=== PATIENT | male | born 1940 | race African-American/Black ===

== ENCOUNTER 2023-06-03 10:57 | Emergency (ER) | payer OTHER, MEDICAID ==
[~2023-06-03] VITALS: Ht 172.7 cm; Wt 69.0 kg
[2023-06-03 11:00] VITALS: O2SAT 99
[2023-06-03 11:48] LABS: BASOPHILS % 0.2 % (0.0-2.0); EOSINOPHILS % 1.8 % (0.0-5.0); HEMATOCRIT. 28.4 % (42.0-52.0); HEMOGLOBIN. 10.2 g/dL (14.0-18.0); LYMPHOCYTES % 30.8 % (20.0-50.0); MEAN CORPUSCULAR HEMOGLOBIN 32.8 pg (28.0-32.0); MEAN CORPUSCULAR VOLUME 91.1 fL (80.0-94.0); MEAN PLATELET VOLUME 6.5 fl (7.4-10.4); MONOCYTES % 9.6 % (2.0-8.0); NEUTROPHILS % 57.6 % (40.0-76.0); PLATELET 258 x1000/uL (130-400); RED BLOOD CELL COUNT 3.12 mill/uL (4.7-6.1); RED CELL DISTRIBUTION WIDTH 12.5 % (11.6-14.6)
[2023-06-03] MEDS ORDERED: MORPHINE SULFATE 2 MG/ML CPJ (NOT FOR IM USE) IV ONE (12:15)
[2023-06-03 12:33] LABS: ALANINE AMINOTRANSFERASE 18 IU/L (10-49); ALBUMIN 4.1 g/dL (3.2-4.8); ASPARTATE AMINOTRANSFERASE 21 IU/L (<34); BILIRUBIN TOTAL 0.6 mg/dL (0.1-1.0); CALCIUM 9.8 mg/dL (8.7-10.4); CARBON DIOXIDE 29 mEq/L (21-32); CHLORIDE 99 mEq/L (98-107); GLUCOSE 189 mg/dL (70-105); POTASSIUM 4.2 mEq/L (3.5-5.1); PROTEIN TOTAL 7.3 g/dL (6.0-8.3); SODIUM 131 mEq/L (136-145); TROPONIN I HIGH SENSITIVITY 7 ng/L (3.0-53); UREA NITROGEN BLOOD 21 mg/dL (9-23)
[2023-06-03] MEDS ORDERED: MORPHINE SULFATE 4 MG/ML CPJ (NOT FOR IM USE) IV ONE (14:15)
[2023-06-03] MEDS ORDERED: LABETALOL 5MG/ML SYR 20 MG/4 ML SYRINGE IV ONE (14:30)
[2023-06-03 17:00] LABS: TROPONIN I HIGH SENSITIVITY 8 ng/L (3.0-53)
[2023-06-03] MEDS ORDERED: LABETALOL 5MG/ML SYR 20 MG/4 ML SYRINGE IV NR (18:00)
[2023-06-03 19:48] VITALS: BP 170/82; PULSE 68; RESP 17; TEMP 98.6
== END 2023-06-03 19:50 | disposition short-term general hospital (02) ==
LOC: ER 10:57
DX: R07.89 Other chest pain (principal); I10 Essential (primary) hypertension; Z86.73 Personal history of transient ischemic attack (TIA), and cerebral infarction without residual deficits
CPT/HCPCS: 99285; 74174; 96374; 71275; 71045; 96375; 80053; 83880; 85025; 84484; 36415; 93005; 96376; J3490; J2270 ×2

== ENCOUNTER 2023-06-29 17:55 | Emergency (ER) | payer OTHER ==
[~2023-06-29] VITALS: Ht 175.3 cm; Wt 82.0 kg
[2023-06-29] MEDS ORDERED: ONDANSETRON HCL 4MG/2ML INJ IV STA (18:18)
[2023-06-29] MEDS ORDERED: SODIUM CHLORIDE 0.9% 1,000 ML IV ONE (18:30)
[2023-06-29] MEDS ORDERED: ASPIRIN 81MG TABLET PO ONE (18:45)
[2023-06-29 19:59] LABS: BASOPHILS % 0.2 % (0.0-2.0); EOSINOPHILS % 1.5 % (0.0-5.0); HEMATOCRIT. 38.6 % (42.0-52.0); HEMOGLOBIN. 12.9 g/dL (14.0-18.0); LYMPHOCYTES % 11.2 % (20.0-50.0); MEAN CORPUSCULAR HEMOGLOBIN 32.4 pg (28.0-32.0); MEAN CORPUSCULAR HGB CONC 33.3 g/dL (31.0-37.0); MEAN CORPUSCULAR VOLUME 97.3 fL (80.0-94.0); MEAN PLATELET VOLUME 6.7 fl (7.4-10.4); MONOCYTES % 1.3 % (2.0-8.0); NEUTROPHILS % 85.8 % (40.0-76.0); PLATELET 224 x1000/uL (130-400); RED BLOOD CELL COUNT 3.96 mill/uL (4.7-6.1); RED CELL DISTRIBUTION WIDTH 13.6 % (11.6-14.6); WHITE BLOOD COUNT 9.7 x1000/uL (4.5-11.0)
[2023-06-29 20:31] LABS: INR 1.1; PROTHROMBIN TIME 11.4 sec (9.6-11.0)
[2023-06-29 21:39] LABS: CARBON DIOXIDE 15 mEq/L (21-32); CHLORIDE 96 mEq/L (98-107); POTASSIUM 4.5 mEq/L (3.5-5.1); SODIUM 125 mEq/L (136-145)
[2023-06-29 21:46] LABS: ALANINE AMINOTRANSFERASE 32 IU/L (10-49); ALBUMIN 4.3 g/dL (3.2-4.8); ASPARTATE AMINOTRANSFERASE 27 IU/L (<34); BILIRUBIN TOTAL 0.8 mg/dL (0.1-1.0); CALCIUM 10.3 mg/dL (8.7-10.4); GLUCOSE 209 mg/dL (70-105); PROTEIN TOTAL 7.9 g/dL (6.0-8.3); TROPONIN I HIGH SENSITIVITY 7 ng/L (3.0-53); UREA NITROGEN BLOOD 18 mg/dL (9-23)
[2023-06-29 21:47] LABS: CREATININE 1.4 mg/dL (0.6-1.3); ETHANOL BLOOD < 10 mg/dL (<10)
[2023-06-29 23:12] VITALS: TEMP 98.6; O2SAT 99
[2023-06-30 00:06] VITALS: BP 179/99; PULSE 84; RESP 15
== END 2023-06-30 00:07 | disposition short-term general hospital (02) ==
LOC: ER 17:55 → CANBEDREQ 22:13 → ER 06-30 00:07
DX: R07.89 Other chest pain (principal); R55 Syncope and collapse; E87.1 Hypo-osmolality and hyponatremia; N17.9 Acute kidney failure, unspecified; I10 Essential (primary) hypertension; Z86.73 Personal history of transient ischemic attack (TIA), and cerebral infarction without residual deficits
CPT/HCPCS: 80053; 80320; 83690; 85025; 85610; 84484; 87493; 36415; 71045; 93005; 96361; 96374; 99291; J2405; J7030; G0480

== ENCOUNTER 2023-07-05 18:17 | Emergency (ER) | payer OTHER ==
[~2023-07-05] VITALS: Ht 182.9 cm; Wt 77.0 kg
[2023-07-05 18:20] VITALS: TEMP 98.4; O2SAT 98
[2023-07-05 19:16] LABS: BASOPHILS % 0.4 % (0.0-2.0); EOSINOPHILS % 2.8 % (0.0-5.0); HEMATOCRIT. 28.6 % (42.0-52.0); HEMOGLOBIN. 9.6 g/dL (14.0-18.0); LYMPHOCYTES % 30.8 % (20.0-50.0); MEAN CORPUSCULAR HEMOGLOBIN 32.8 pg (28.0-32.0); MEAN CORPUSCULAR HGB CONC 33.7 g/dL (31.0-37.0); MEAN CORPUSCULAR VOLUME 97.4 fL (80.0-94.0); MEAN PLATELET VOLUME 6.7 fl (7.4-10.4); MONOCYTES % 7.8 % (2.0-8.0); NEUTROPHILS % 58.2 % (40.0-76.0); PLATELET 223 x1000/uL (130-400); RED BLOOD CELL COUNT 2.93 mill/uL (4.7-6.1); RED CELL DISTRIBUTION WIDTH 13.4 % (11.6-14.6); WHITE BLOOD COUNT 7.3 x1000/uL (4.5-11.0)
[2023-07-05 19:27] LABS: ALANINE AMINOTRANSFERASE 35 IU/L (10-49); ALBUMIN 4.1 g/dL (3.2-4.8); ASPARTATE AMINOTRANSFERASE 34 IU/L (<34); BILIRUBIN TOTAL 0.6 mg/dL (0.1-1.0); CALCIUM 9.9 mg/dL (8.7-10.4); CARBON DIOXIDE 22 mEq/L (21-32); CHLORIDE 96 mEq/L (98-107); GLUCOSE 179 mg/dL (70-105); POTASSIUM 4.6 mEq/L (3.5-5.1); PROTEIN TOTAL 6.7 g/dL (6.0-8.3); SODIUM 125 mEq/L (136-145); TROPONIN I HIGH SENSITIVITY 8 ng/L (3.0-53); UREA NITROGEN BLOOD 12 mg/dL (9-23)
[2023-07-05] MEDS ORDERED: ACETAMINOPHEN 325MG TABLET PO ONE (19:45)
[2023-07-05] MEDS ORDERED: ENALAPRIL 2.5MG/2ML VIAL 2ML IV ONE (20:45)
[2023-07-05] MEDS ORDERED: ENALAPRIL 1.25MG/ML VIAL 1ML IV NR (21:00)
[2023-07-05 22:30] VITALS: BP 176/97; PULSE 90; RESP 18
== END 2023-07-05 22:30 | disposition left against medical advice (07) ==
LOC: ER 18:17 → CANBEDREQ 07-07 16:42
DX: R07.89 Other chest pain (principal); E87.1 Hypo-osmolality and hyponatremia; F41.9 Anxiety disorder, unspecified; I10 Essential (primary) hypertension; Z86.73 Personal history of transient ischemic attack (TIA), and cerebral infarction without residual deficits
CPT/HCPCS: 36415; 71045; 80053; 84484; 85025; 93005; 99285; J3490

== ENCOUNTER 2023-10-10 17:16 | Emergency (ER) | payer OTHER, MEDICAID ==
[~2023-10-10] VITALS: Ht 172.7 cm; Wt 82.0 kg
[2023-10-10 17:19] VITALS: O2SAT 99
[2023-10-10] MEDS: NITROGLYCERIN 0.4MG TABLET SL SL PRN (17:40)
[2023-10-10 18:21] LABS: BASOPHILS % 0.2 % (0.0-2.0); EOSINOPHILS % 5.3 % (0.0-5.0); HEMATOCRIT. 28.3 % (42.0-52.0); HEMOGLOBIN. 9.8 g/dL (14.0-18.0); MEAN CORPUSCULAR HEMOGLOBIN 33.7 pg (28.0-32.0); MEAN CORPUSCULAR HGB CONC 34.5 g/dL (31.0-37.0); MEAN CORPUSCULAR VOLUME 97.8 fL (80.0-94.0); MEAN PLATELET VOLUME 6.6 fl (7.4-10.4); MONOCYTES % 6.5 % (2.0-8.0); PLATELET 256 x1000/uL (130-400); RED CELL DISTRIBUTION WIDTH 12.7 % (11.6-14.6); WHITE BLOOD COUNT 5.5 x1000/uL (4.5-11.0)
[2023-10-10 18:27] LABS: CHLORIDE 103 mEq/L (98-107); POTASSIUM 3.8 mEq/L (3.5-5.1); SODIUM 135 mEq/L (136-145)
[2023-10-10 18:28] LABS: CALCIUM 10.5 mg/dL (8.7-10.4); CARBON DIOXIDE 27 mEq/L (21-32)
[2023-10-10 18:33] LABS: CREATININE 1.1 mg/dL (0.6-1.3); GLUCOSE 172 mg/dL (70-105); TROPONIN I HIGH SENSITIVITY 9 ng/L (3.0-53); UREA NITROGEN BLOOD 15 mg/dL (9-23)
[2023-10-10 18:35] LABS: ALANINE AMINOTRANSFERASE 24 IU/L (10-49); ALBUMIN 4.3 g/dL (3.2-4.8); ASPARTATE AMINOTRANSFERASE 20 IU/L (<34); BILIRUBIN TOTAL 0.5 mg/dL (0.1-1.0); PROTEIN TOTAL 7.1 g/dL (6.0-8.3)
[2023-10-10 18:59] VITALS: BP 188/90; PULSE 55; RESP 18; TEMP 97.9
[2023-10-10] MEDS: CLONIDINE 0.1MG TABLET PO ONE (19:24)
[2023-10-10 19:58] LABS: TROPONIN I HIGH SENSITIVITY 12 ng/L (3.0-53)
[2023-10-10] MEDS ORDERED: LORAZEPAM 1MG TABLET PO ONE (22:00)
== END 2023-10-10 22:21 | disposition left against medical advice (07) ==
LOC: ER 17:16 → EDBEDREQ 17:43 → ER 22:21
DX: R07.89 Other chest pain (principal); I10 Essential (primary) hypertension; F41.9 Anxiety disorder, unspecified; Z86.73 Personal history of transient ischemic attack (TIA), and cerebral infarction without residual deficits
CPT/HCPCS: 36415; 71045; 80053; 83880; 84484; 85025; 93005; 99285

== ENCOUNTER 2024-08-10 06:59 | Inpatient (IN) | payer OTHER, MEDICAID, MEDICARE ==
[~2024-08-10] VITALS: Ht 167.6 cm; Wt 65.8 kg
[2024-08-10 08:30] LABS: BG BASE EXCESS -1.4 mmol/L (-2.0-3.0); BG CARBOXYHEMOGLOBIN 0.8 % (0.5-1.5); BG DEOXYHEMOGLOBIN 3.2 % (0.0-5.0); BG FRACTION INSPIRED OXYGEN 21; BG HCO3 ACT 22.7 mmol/L (21.0-28.0); BG METHEMOGLOBIN 0.2 % (0.5-1.5); BG OXYGEN SATURATION 96.8 % (94.0-98.0); BG OXYHEMOGLOBIN 95.8 % (94.0-98.0); BG PCO2 35.9 mmHg (35.0-48.0); BG PH 7.419 (7.350-7.450); BG PO2 90.3 mmHg (83.0-108.0); BG SAMPLE SITE LEFT BRACHIAL; BG TOTAL HEMOGLOBIN 11.5 g/dL (13.5-17.5); BG VENT MODE ROOM AIR
[2024-08-10 08:47] LABS: BASOPHILS % 0.3 % (0.0-2.0); EOSINOPHILS % 2.5 % (0.0-5.0); HEMATOCRIT. 30.2 % (42.0-52.0); HEMOGLOBIN. 10.6 g/dL (14.0-18.0); LYMPHOCYTES % 23.4 % (20.0-50.0); MEAN CORPUSCULAR HEMOGLOBIN 33.4 pg (28.0-32.0); MEAN CORPUSCULAR HGB CONC 35.2 g/dL (31.0-37.0); MEAN CORPUSCULAR VOLUME 95.1 fL (80.0-94.0); MONOCYTES % 6.2 % (2.0-8.0); NEUTROPHILS % 67.6 % (40.0-76.0); PLATELET 230 x1000/uL (130-400); RED BLOOD CELL COUNT 3.18 mill/uL (4.7-6.1); RED CELL DISTRIBUTION WIDTH 12.7 % (11.6-14.6); WHITE BLOOD COUNT 6.4 x1000/uL (4.5-11.0)
[2024-08-10 09:00] LABS: CHLORIDE 100 mEq/L (98-107); POTASSIUM 3.8 mEq/L (3.5-5.1); SODIUM 132 mEq/L (136-145)
[2024-08-10 09:01] LABS: CALCIUM 9.4 mg/dL (8.7-10.4); CARBON DIOXIDE 24 mEq/L (21-32)
[2024-08-10 09:02] LABS: PROTHROMBIN TIME 10.9 sec (9.6-11.0)
[2024-08-10 09:05] LABS: CLARITY URINE CLEAR (CLEAR); COLOR URINE YELLOW (YELLOW); GLUCOSE URINE 2+ (NEGATIVE); KETONES URINE NEGATIVE (NEGATIVE); LEUKOCYTE ESTERASE URINE 1+ (NEGATIVE); NITRITE URINE NEGATIVE (NEGATIVE); OCCULT BLOOD URINE NEGATIVE (NEGATIVE); PROTEIN URINE 1+ (NEGATIVE); SPECIFIC GRAVITY URINE 1.025 (1.005-1.030); UROBILINOGEN URINE 0.2 E.U./dL (0.2-1.0)
[2024-08-10 09:06] LABS: UREA NITROGEN BLOOD 16 mg/dL (9-23)
[2024-08-10 09:07] LABS: GLUCOSE 390 mg/dL (70-105)
[2024-08-10 09:08] LABS: TROPONIN I HIGH SENSITIVITY 34 ng/L (3.0-53)
[2024-08-10 09:18] LABS: *AMPHETAMINES SCREEN URINE NEGATIVE (NEGATIVE); *BARBITURATES SCREEN URINE NEGATIVE (NEGATIVE); *BENZODIAZEPINES SCREEN URINE NEGATIVE (NEGATIVE); *COCAINE SCREEN URINE NEGATIVE (NEGATIVE); METHADONE URINE SCREEN NEGATIVE (NEGATIVE); OPIATES URINE SCREEN PRESUMPTIVE POSITIVE (NEGATIVE); PHENCYCLIDINE URINE SCREEN NEGATIVE (NEGATIVE)
[2024-08-10 09:19] LABS: CANNABINOID URINE SCREEN NEGATIVE (NEGATIVE); ECSTASY MDMA SCREEN URINE NEGATIVE (NEGATIVE)
[2024-08-10 09:30] LABS: BACTERIA URINE 1+; RBC URINE 0-2 /hpf (0-2); SQUAMOUS EPITHELIAL CELL URINE RARE /lpf (RARE/1+); WBC URINE 15-25 /hpf (0-2); YEAST URINE NONE SEEN
[2024-08-10 09:36] LABS: BETA HYDROXYBUTYRATE 0.5 mMol/L (0.0-0.3)
[2024-08-10 09:37] LABS: ETHANOL BLOOD < 10 mg/dL (<10)
[2024-08-10] MEDS: CEFTRIAXONE 1GM/50ML 50 ML IV ONE (10:02)
[2024-08-10] MEDS: MORPHINE SULFATE 4 MG/ML INJ (FOR IV/IM USE) IV ONE (10:54)
[2024-08-10] MEDS: HYDRALAZINE 20MG/ML VIAL IV ONE (10:54)
[2024-08-10 11:59] VITALS: BP 166/67; PULSE 82; RESP 18; TEMP 36.5; O2SAT 99
[2024-08-10 12:00] VITALS: BP 166/87; PULSE 84; RESP 20; TEMP 36.5
[2024-08-10] MEDS ORDERED: ONDANSETRON HCL 4MG/2ML INJ IV PRN (14:30)
[2024-08-10] MEDS ORDERED: IPRATROPIUM/ALBUTEROL 0.5-3(2.5)MG/3ML NEB HHN PRN (14:30)
[2024-08-10] MEDS ORDERED: MAGNESIUM/ALUMINUM HYDROXIDE/SIMETHICONE 30ML UDC PO PRN (14:30)
[2024-08-10] MEDS ORDERED: ACETAMINOPHEN 325MG TABLET PO PRN ×2 (14:30)
[2024-08-10] MEDS ORDERED: GUAIFENESIN 200MG/10ML SUGAR FREE UDC PO PRN (14:30)
[2024-08-10] MEDS ORDERED: DOCUSATE SODIUM 100MG CAPSULE PO PRN (14:30)
[2024-08-10] MEDS ORDERED: IOHEXOL-350 100 ML BOTTLE ONE (14:49)
[2024-08-10] MEDS ORDERED: IOHEXOL-300 100 ML BOTTLE ONE (14:50)
[2024-08-10] MEDS ORDERED: DEXTROSE 50% WATER 50ML SYRINGE IV PRN (15:15)
[2024-08-10] MEDS ORDERED: LORA-250 PO (15:48)
[2024-08-10] MEDS ORDERED: FINA1TAB14 PO (15:48)
[2024-08-10] MEDS ORDERED: TAMS-11 MT (15:48)
[2024-08-10] MEDS ORDERED: FOLI-43 MT (15:48)
[2024-08-10] MEDS ORDERED: ATOR-2 MT (15:48)
[2024-08-10] MEDS ORDERED: ISOS60TA76 MT (15:48)
[2024-08-10] MEDS ORDERED: HYDR50TA40 MT (15:48)
[2024-08-10] MEDS ORDERED: LISI40TA13 PO (15:48)
[2024-08-10] MEDS ORDERED: MULT-1203 MT (15:48)
[2024-08-10] MEDS ORDERED: FAMO40TA7 PO ×2 (15:48→17:11)
[2024-08-10] MEDS ORDERED: CYAN50009 PO (15:48)
[2024-08-10] MEDS ORDERED: COR3 PO (15:48)
[2024-08-10] MEDS ORDERED: HYDR-4001 MT (15:48)
[2024-08-10] MEDS ORDERED: ARIP2TAB66 PO (15:51)
[2024-08-10 16:00] VITALS: BP 217/76; PULSE 85; RESP 18; TEMP 36.6; O2SAT 99
[2024-08-10] MEDS ORDERED: LORAZEPAM 1MG TABLET PO PRN (16:30)
[2024-08-10] MEDS ORDERED: ACYC200C31 PO (17:09)
[2024-08-10] MEDS ORDERED: HYDR-2988 PO (17:11)
[2024-08-10] MEDS ORDERED: ATOR-2 PO (17:11)
[2024-08-10] MEDS ORDERED: FOLI-43 PO (17:11)
[2024-08-10] MEDS ORDERED: LATA2.5D14 EACHEYE (17:12)
[2024-08-10] MEDS: INSULIN LISPRO 100 UNITS/ML SUBCUT SCH (17:40)
[2024-08-10] MEDS: FINASTERIDE 5MG TABLET PO SCH (17:43)
[2024-08-10] MEDS: TAMSULOSIN HCL 0.4MG SR CAPSULE PO SCH (17:43)
[2024-08-10 18:52] LABS: SODIUM URINE RANDOM 87 mEq/L
[2024-08-10] MEDS: HYDRALAZINE HCL 25MG TABLET PO SCH (19:07)
[2024-08-10] MEDS: CARVEDILOL 3.125 MG TABLET PO SCH (19:07)
[2024-08-10] MEDS: ISOSORBIDE MONONITRATE 60MG TABLET SR 24HR PO SCH (19:07)
[2024-08-10 19:12] LABS: OSMOLALITY URINE 396 mOsm/kg (500-850)
[2024-08-10 20:00] VITALS: BP 160/80; PULSE 84; RESP 18; TEMP 36.7; O2SAT 100
[2024-08-10] MEDS ORDERED: FAMOTIDINE 20MG TABLET PO SCH (21:00)
[2024-08-10] MEDS: FAMOTIDINE 20MG TABLET PO SCH (21:00)
[2024-08-10] MEDS: ENOXAPARIN 40MG/0.4ML SYR SUBCUT SCH (21:00)
[2024-08-10] MEDS: ATORVASTATIN CALCIUM 40MG TABLET PO SCH (21:00)
[2024-08-10] MEDS ORDERED: ATORVASTATIN CALCIUM 40MG TABLET PO SCH (21:00)
[2024-08-10] MEDS ORDERED: HYDRALAZINE HCL 25MG TABLET PO SCH (22:00)
[2024-08-10] MEDS: KETOROLAC 15MG/ML VIAL IV NR (23:25)
[2024-08-11] VITALS: BP 162/64; PULSE 63; RESP 19; TEMP 36.3; O2SAT 100
[2024-08-11 01:04] LABS: CREATINE KINASE 151 IU/L (46-171); TROPONIN I HIGH SENSITIVITY 52 ng/L (3.0-53)
[2024-08-11] MEDS: HYDRALAZINE 20MG/ML VIAL IV NR (01:06)
[2024-08-11] MEDS ORDERED: NALOXONE HCL 0.4MG/ML VIAL IV PRN (03:00)
[2024-08-11] MEDS: MORPHINE SULFATE 2 MG/ML INJ (NOT FOR IM USE) IV PRN (03:24)
[2024-08-11 04:00] VITALS: BP 153/79; PULSE 81; RESP 18; TEMP 35.1; O2SAT 99
[2024-08-11 06:43] LABS: BASOPHILS % 0.2 % (0.0-2.0); EOSINOPHILS % 2.1 % (0.0-5.0); HEMATOCRIT. 34.5 % (42.0-52.0); HEMOGLOBIN. 11.6 g/dL (14.0-18.0); MEAN CORPUSCULAR HEMOGLOBIN 32.5 pg (28.0-32.0); MEAN CORPUSCULAR HGB CONC 33.6 g/dL (31.0-37.0); MEAN CORPUSCULAR VOLUME 96.5 fL (80.0-94.0); MEAN PLATELET VOLUME 7.3 fl (7.4-10.4); MONOCYTES % 7.1 % (2.0-8.0); NEUTROPHILS % 59.6 % (40.0-76.0); PLATELET 234 x1000/uL (130-400); RED BLOOD CELL COUNT 3.58 mill/uL (4.7-6.1); RED CELL DISTRIBUTION WIDTH 12.9 % (11.6-14.6)
[2024-08-11 06:51] LABS: CALCIUM 9.9 mg/dL (8.7-10.4); CARBON DIOXIDE 24 mEq/L (21-32); CHLORIDE 101 mEq/L (98-107); CORTISOL 23.9 ucg/dL; POTASSIUM 3.8 mEq/L (3.5-5.1); SODIUM 136 mEq/L (136-145)
[2024-08-11 06:57] LABS: CREATINE KINASE 144 IU/L (46-171); CREATININE 1.1 mg/dL (0.6-1.3); TRIGLYCERIDE 57 mg/dL (0-150); UREA NITROGEN BLOOD 19 mg/dL (9-23)
[2024-08-11 06:58] LABS: LDL CHOLESTEROL 52 mg/dL (5-100)
[2024-08-11 06:59] LABS: CHOLESTEROL 127 mg/dL (<200); HDL CHOLESTEROL 48 mg/dL (>55)
[2024-08-11 07:01] LABS: T4 FREE 1.62 ng/dL (0.89-1.76); THYROID STIMULATING HORMONE 0.84 uIU/mL (0.55-4.78)
[2024-08-11 07:12] LABS: FOLIC ACID (FOLATE) SERUM > 20.00 ng/mL (>5.38)
[2024-08-11 07:20] LABS: VITAMIN B12 SERUM > 2000 pg/mL (211-911)
[2024-08-11 07:21] LABS: GLUCOSE 215 mg/dL (70-105)
[2024-08-11 08:00] VITALS: BP 169/86; PULSE 75; RESP 19; TEMP 36.9; O2SAT 98
[2024-08-11 08:36] LABS: TROPONIN I HIGH SENSITIVITY 47 ng/L (3.0-53)
[2024-08-11] MEDS ORDERED: FINASTERIDE 5MG TABLET PO SCH (09:00)
[2024-08-11] MEDS ORDERED: CARVEDILOL 3.125 MG TABLET PO SCH (09:00)
[2024-08-11] MEDS ORDERED: CEFTRIAXONE 1GM/50ML 50 ML IV SCH (09:00)
[2024-08-11] MEDS ORDERED: ISOSORBIDE MONONITRATE 60MG TABLET SR 24HR PO SCH (09:00)
[2024-08-11] MEDS: LISINOPRIL 20MG TABLET PO SCH (09:05)
[2024-08-11] MEDS: CEFTRIAXONE 1GM/50ML 50 ML IV SCH (11:51)
[2024-08-11 12:00] VITALS: BP 160/81; PULSE 71; RESP 20; TEMP 36.9; O2SAT 100
[2024-08-11] MEDS: ARIPIPRAZOLE 2MG TABLET PO PRN (17:58)
[2024-08-11 18:30] VITALS: BP 167/78; PULSE 61; RESP 18; TEMP 36.6; O2SAT 97
[2024-08-11 18:50] VITALS: BP 167/78; PULSE 73; TEMP 97.9; O2SAT 97
== END 2024-08-12 01:15 | disposition short-term general hospital (02) | DRG 391 ==
LOC: ER 06:59 → 5WST 11:09 → EDBEDREQ 11:14 → EDBEDREQTM 11:14
PROVIDERS: ADMIT Hospitalist; ATTEND Hospitalist
DX: K21.9 Gastro-esophageal reflux disease without esophagitis (principal); G92.8 Other toxic encephalopathy; E87.1 Hypo-osmolality and hyponatremia; N39.0 Urinary tract infection, site not specified; E78.5 Hyperlipidemia, unspecified; D53.9 Nutritional anemia, unspecified; E11.65 Type 2 diabetes mellitus with hyperglycemia; F03.90 Unspecified dementia, unspecified severity, without behavioral disturbance, psychotic disturbance, mood disturbance, and anxiety; B95.1 Streptococcus, group B, as the cause of diseases classified elsewhere; I16.0 Hypertensive urgency; Z86.73 Personal history of transient ischemic attack (TIA), and cerebral infarction without residual deficits; Z88.2 Allergy status to sulfonamides; Z88.3 Allergy status to other anti-infective agents; Z88.6 Allergy status to analgesic agent; Z88.8 Allergy status to other drugs, medicaments and biological substances
CPT/HCPCS: 36415; 36600; 70496; 70498; 71045; 80048; 80061; 80305; 80320; 81003; 82010; 82375; 82533; 82550; 82607; 82746; 82805; 82962; 83036; 83880; 83930; 83935; 84300; 84439; 84443; 84484; 85025; 93005; 97166; 99291; A4606; J0360; J0696; J1650; J1815; J1885; J2270; Q9967; G0480

== ENCOUNTER 2025-03-31 21:57 | Emergency (ER) | payer OTHER, MEDICAID ==
[~2025-03-31] VITALS: Ht 182.9 cm; Wt 60.0 kg
[~2025-03-31 21:57] MED LIST: ARIP2TAB66 PO; ATOR-2 PO; COR3 PO; FAMO40TA7 PO; FINA1TAB14 PO; FOLI-43 PO; HYDR100T31 PO; ISOS60TA76 MT; LATA2.5D7 EACHEYE; LISI40TA21 PO; LORA-250 PO; TAMS-54 MT
[2025-03-31 22:13] VITALS: O2SAT 98
[2025-03-31 23:15] LABS: INR 1.0
[2025-03-31 23:18] LABS: CREATININE 1.0 mg/dL (0.6-1.3)
[2025-03-31 23:19] LABS: ETHANOL BLOOD < 10 mg/dL (<10); UREA NITROGEN BLOOD 13 mg/dL (9-23)
[2025-03-31 23:20] LABS: ASPARTATE AMINOTRANSFERASE 24 IU/L (<34); BILIRUBIN DIRECT 0.2 mg/dL (<=3.0); PHOSPHORUS 2.6 mg/dL (2.5-4.9); TROPONIN I HIGH SENSITIVITY 17 ng/L (3.0-53)
[2025-03-31 23:21] LABS: BILIRUBIN TOTAL 0.5 mg/dL (0.1-1.0); PROTEIN TOTAL 6.8 g/dL (6.0-8.3)
[2025-03-31 23:22] LABS: BASOPHILS % 0.3 % (0.0-2.0); EOSINOPHILS % 3.0 % (0.0-5.0); HEMATOCRIT. 31.1 % (42.0-52.0); HEMOGLOBIN. 10.4 g/dL (14.0-18.0); LYMPHOCYTES % 36.3 % (20.0-50.0); MEAN PLATELET VOLUME 7.2 fl (7.4-10.4); MONOCYTES % 6.7 % (2.0-8.0); NEUTROPHILS % 53.7 % (40.0-76.0); PLATELET 263 x1000/uL (130-400); RED BLOOD CELL COUNT 3.27 mill/uL (4.7-6.1); RED CELL DISTRIBUTION WIDTH 13.2 % (11.6-14.6)
[2025-03-31] MEDS: ISOSORBIDE MONONITRATE 30MG TABLET SR 24HR PO ONE (23:49)
[2025-04-01 00:19] LABS: CLARITY URINE CLEAR (CLEAR); COLOR URINE YELLOW (YELLOW); GLUCOSE URINE NEGATIVE (NEGATIVE); KETONES URINE NEGATIVE (NEGATIVE); LEUKOCYTE ESTERASE URINE TRACE (NEGATIVE); NITRITE URINE NEGATIVE (NEGATIVE); OCCULT BLOOD URINE NEGATIVE (NEGATIVE); PH URINE 7.5 (4.5-8.0); PROTEIN URINE 1+ (NEGATIVE); SPECIFIC GRAVITY URINE 1.010 (1.005-1.030); UROBILINOGEN URINE 0.2 E.U./dL (0.2-1.0)
[2025-04-01 00:47] LABS: *AMPHETAMINES SCREEN URINE NEGATIVE (NEGATIVE); *BARBITURATES SCREEN URINE NEGATIVE (NEGATIVE); *BENZODIAZEPINES SCREEN URINE NEGATIVE (NEGATIVE); *COCAINE SCREEN URINE NEGATIVE (NEGATIVE); CANNABINOID URINE SCREEN NEGATIVE (NEGATIVE); METHADONE URINE SCREEN NEGATIVE (NEGATIVE); OPIATES URINE SCREEN NEGATIVE (NEGATIVE); PHENCYCLIDINE URINE SCREEN NEGATIVE (NEGATIVE)
[2025-04-01 00:48] LABS: ECSTASY MDMA SCREEN URINE NEGATIVE (NEGATIVE)
[2025-04-01 01:12] LABS: SQUAMOUS EPITHELIAL CELL URINE FEW /lpf (RARE/1+)
[2025-04-01 01:13] LABS: RBC URINE 0-2 /hpf (0-2)
[2025-04-01 01:13] LABS: TROPONIN I HIGH SENSITIVITY 18 ng/L (3.0-53)
[2025-04-01 01:14] LABS: BACTERIA URINE NONE SEEN
[2025-04-01 01:27] VITALS: BP 174/76; PULSE 61; RESP 15; TEMP 36.7; O2SAT 100
== END 2025-04-01 01:35 | disposition home or self-care (01) ==
LOC: ER 21:57 → CMPBEDREQ 04-01 02:52
DX: R53.1 Weakness (principal); R00.1 Bradycardia, unspecified; F03.A0 Unspecified dementia, mild, without behavioral disturbance, psychotic disturbance, mood disturbance, and anxiety; I10 Essential (primary) hypertension; E11.9 Type 2 diabetes mellitus without complications; R06.02 Shortness of breath; Z79.899 Other long term (current) drug therapy; Z88.1 Allergy status to other antibiotic agents; Z88.2 Allergy status to sulfonamides; Z88.6 Allergy status to analgesic agent; Z88.8 Allergy status to other drugs, medicaments and biological substances
CPT/HCPCS: 36415; 71045; 80048; 80076; 80305; 80320; 81003; 83735; 83880; 84100; 84484; 85025; 93005; 99285; G0480